=== PATIENT | female | born 1990 | race Caucasian/White ===

== ENCOUNTER 2017-01-31 13:16 | Emergency (ER) | payer MEDICAID ==
[~2017-01-31] VITALS: Ht 175.3 cm; Wt 64.0 kg
[~2017-01-31 13:16] MED LIST: LAMO50TA3 PO; LEVE500T53 PO
[2017-01-31 13:19] VITALS: BP 108/74
== END 2017-01-31 14:26 | disposition left against medical advice (07) ==
LOC: ED 14:13
DX: R10.84 Generalized abdominal pain (principal); K59.00 Constipation, unspecified; G40.909 Epilepsy, unspecified, not intractable, without status epilepticus; Z88.0 Allergy status to penicillin
CPT/HCPCS: 99281

== ENCOUNTER 2017-02-18 14:19 | Emergency (ER) | payer MEDICAID ==
[~2017-02-18] VITALS: Ht 175.3 cm; Wt 64.8 kg
[2017-02-18 14:23] VITALS: BP 111/70
== END 2017-02-18 15:36 | disposition home or self-care (01) ==
LOC: ED 14:50
DX: F41.1 Generalized anxiety disorder (principal); F17.200 Nicotine dependence, unspecified, uncomplicated
CPT/HCPCS: 99284

== ENCOUNTER 2017-04-20 00:54 | Emergency (ER) | payer MEDICAID ==
[~2017-04-20] VITALS: Ht 175.3 cm; Wt 64.3 kg
[2017-04-20 00:55] VITALS: BP 127/82
[2017-04-20] MEDS ORDERED: DIPHENHYDRAMINE 25 MG CAPSULE PO ONE (01:30)
[2017-04-20] MEDS ORDERED: DEXAMETHASONE 4 MG TABLET PO ONE (01:30)
[2017-04-20] MEDS ORDERED: KETOROLAC 30 MG/1 ML IM ONE (01:30)
[2017-04-20] MEDS ORDERED: METOCLOPRAMIDE 5 MG/ML, 2ML IM ONE (01:30)
[2017-04-20] MEDS ORDERED: DIPHENHYDRAMINE 25 MG CAPSULE ONE (01:54)
[2017-04-20] MEDS ORDERED: DEXAMETHASONE 4 MG TABLET ONE (01:54)
[2017-04-20] MEDS ORDERED: METOCLOPRAMIDE 5 MG/ML, 2ML ONE (01:54)
[2017-04-20] MEDS ORDERED: KETOROLAC 30 MG/1 ML ONE (01:54)
== END 2017-04-20 02:27 | disposition home or self-care (01) ==
LOC: ED 02:00
DX: G89.29 Other chronic pain (principal); R51 Headache; G40.909 Epilepsy, unspecified, not intractable, without status epilepticus; Z88.0 Allergy status to penicillin
CPT/HCPCS: 96372; 99284; J1885; J2765; Q0163